=== PATIENT | female | born 1945 | race Caucasian/White ===

== ENCOUNTER 2018-09-29 10:28 | Inpatient (IN) | payer OTHER ==
[~2018-09-29] VITALS: Ht 165.1 cm; Wt 69.4 kg
[2018-09-29 10:29] VITALS: BP 180/93
[2018-09-29] MEDS ORDERED: ASPIR 8181 MG PO (10:39)
[2018-09-29 11:01] LABS: ABSOLUTE NEUTROPHILS 2.9 thou/uL (1.4-8.2); EOSINOPHILS 1.5 % (0.0-3.0); HEMATOCRIT 44.6 % (37.0-47.0); HEMOGLOBIN 15.3 gm/dL (12.0-15.0); LYMPHOCYTES 34.9 % (24.0-44.0); MCH 31.3 pg (26.0-34.0); MCHC 34.4 g/dL (28.0-37.0); MCV 91.2 fL (80.0-100.0); MONOCYTES 8.8 % (1.0-8.0); PLATELET COUNT 196 thou/uL (150-400); POLYS 53.8 % (36.0-66.0); RBC 4.89 mil/uL (4.20-5.00); RDW 12.7 % (10.5-14.5); WBC 5.3 thou/uL (4.0-11.0)
[2018-09-29 11:05] LABS: ANION GAP 8 mmol/L (7-16); BUN 20 mg/dL (7-18); CALCIUM 9.8 mg/dL (8.5-10.1); CHLORIDE 105 mmol/L (98-107); CO2 28 mmol/L (21-32); CREATININE 0.8 mg/dL (0.6-1.0); GLUCOSE 97 mg/dL (74-106); POTASSIUM 4.2 mmol/L (3.5-5.1); SODIUM 141 mmol/L (136-145)
[2018-09-29 11:14] LABS: TROPONIN-I <0.06 ng/mL (<0.06)
[2018-09-29 12:06] VITALS: BP 123/76
[2018-09-29 12:27] VITALS: BP 123/76
[2018-09-29 12:50] VITALS: BP 144/78
[2018-09-29] MEDS ORDERED: CAPSAICIN HOT1 EACH PO (13:23)
[2018-09-29] MEDS ORDERED: UNICOMPLEX M TA1 TA1 PO (13:24)
[2018-09-29] MEDS ORDERED: JOINT HEALTH T1 EACH PO (13:24)
[2018-09-29 16:08] VITALS: BP 110/79
--- NOTE | 2018-09-29 17:14 | NUR ---
PT ADMITTED TO THIS AFTERNOON AROUND 1315. PT A/O X 4. C/O CHEST PRESSURE PRIOR TO ADMISSION, AND LEFT ARM/ELBOW PAIN AT 5/10. PT REPORTS PAIN SINCE MAR OF LAST YEAR, ALMOST CONSTANT BUT FLUCUTATING IN INTENSITY, WORSE AT NIGHT. PT STATES SHE HAS BEEN EVALUATED FOR CP IN MAR AND APR OF LAST YEAR WITH NO SIGNIFICANT RESULTS. ASSESSMENTS PER CHART. TROPONIN NEGATIVE. DENIES ANY PAIN AT THIS TIME, SITTING UP EATING DINNER. VSS. LABS NOTED. UP AD TESSIE IN ROOM WITH STEADY GAIT. WILL CONT TO MONITOR AND FOLLOW POC.
[2018-09-29 20:00] VITALS: BP 121/66
--- NOTE | 2018-09-30 02:54 | NUR ---
ASSESSMENT: PT REMAIN ALERT AND ORIENT TIMES FOUR. UP AD TESSIE TO THE BR AND AROUND THE ROOM. PT REFUSED TO TAKE SCHEDULED LIPITOR STATING, "I DON'T WANT THAT, I ONLY TAKE VITAMINS, I HATE TAKING PILLS....MY CHOLESTEROL IS NOT HIGH". THIS RN ATTEMPTED TO EXPLAIN THAT LIPITOR IS USED TO HELP PREVENT HER CHOLESTEROL FROM GETTING HIGH AND SHOULD BE A PART OF HER CARDIAC REGIMEN BEING THAT SHE HAS A HX OF A CATH AND A STENT IN 2010. PT DENIED CP, SOB AND N/V. EARLIER, WHEN THIS RN ENTERED THIS PT'S ROOM TO DO THE INITIAL ASSESSMENT, THE PT WAS ON HER CELL PHONE, THE PT ASKED THIS RN, "DO I NEED TO GET OFF OF THE PHONE?''. THIS RN TOLD THE PT THAT SHE WOULD COME BACK LATER. VSS, AFEBRILE. SR PER MONITOR. SLOW PROGRESS TOWARDS DC GOALS. WILL CONTINUE TO MONITOR.
[2018-09-30 05:02] VITALS: BP 125/72
[2018-09-30 06:40] LABS: CHOLESTEROL 163 mg/dL (<200); HDL CHOLESTEROL 70 mg/dL (>40); LDL CHOLESTEROL 86 mg/dL (<100); TC:HDL 2.3 Ratio (Not establshd); TRIGLYCERIDE 37 mg/dL (<150); TROPONIN-I <0.06 ng/mL (<0.06); VLDL 7 mg/dL (<40)
[2018-09-30 06:41] LABS: SERUM ASSESSMENT Clear
[2018-09-30 07:55] VITALS: BP 125/78
[2018-09-30 11:50] VITALS: BP 110/77
[2018-09-30 15:50] VITALS: BP 117/66
--- NOTE | 2018-09-30 19:40 | EKG ---
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 : 1945 Requested By: Lesli Chery Order Number: [id number] MD: Navarro Herrera Measurements Intervals [place] Rate: 71 P: 64 MA: 181 QRS: -41 QRSD: 97 T: 29 QT: 404 QTc: 439 Interpretive Statements Sinus rhythm Left anterior fascicular block anteroseptal infarct, old Baseline wander in lead(s) V5,V6 Compared to ECG 04/13/2018 10:02:53 no significant changes Electronically Signed On 09-30-2018 19:40:09 FENCE INSTALLER FOREMAN by Navarro Herrera [email or web address] ��������������������������������������������� <ELECTRONICALLY SIGNED> ���������������������������������������� By: Navarro Herrera MD ��������������������������������������������� 09/30/18 1940 1031 1031 Navarro Herrera MD /EPI
[2018-09-30 20:00] VITALS: BP 125/67
--- NOTE | 2018-09-30 20:07 | EKG ---
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 : 1945 Requested By: Jana Ramsay Order Number: [id number] MD: Navarro Herrera Measurements Intervals [place] Rate: 64 P: 69 [place]: 190 QRS: -39 QRSD: 100 T: 27 QT: 409 QTc: 422 Interpretive Statements Sinus rhythm Left axis deviation Poor R-wave progression nonspecific ST-T wave changes Compared to ECG 04/13/2018 10:02:53 No significant changes Electronically Signed On 09-30-2018 20:06:56 VIRTUAL CLASSROOM MANAGER by Navarro Herrera [email or web address] ��������������������������������������������� <ELECTRONICALLY SIGNED> ���������������������������������������� By: Navarro Herrera MD ��������������������������������������������� 09/30/182005 0749 0749 Navarro Herrera MD /EPI
--- NOTE | 2018-09-30 21:45 | NUR ---
PATIENT ALERT AND ORIENTED AND UP AD TESSIE IN ROOM. PATIENT SIGNED CONSENT FOR CARDIAC CATH ON MONDAY. PATIENT DAUGHTER AT BEDSIDE THIS AFTERNOON AND DAUGHTERS WILL BE AT HOSPITAL FOR PROCEDURE.
--- NOTE | 2018-10-01 02:01 | NUR ---
ASSUMED CARE 0. VSS. ASSESSMENT CHARTED. PT C/O LEFT ARM PAIN STATES NO CHEST PAIN. DENIES N/V, DIZZINESS, OR ANY OTHER CONCERNS. PT REFUSES MEDS, STATES SHE DOES NOT NEED HER ATORVASTATIN, EDUCATED AND DOCUMENTED. PLAN FOR LABS THIS MORNING AND CARDIAC CATH. WILL CONTIUE TO MONITOR AND WITH POC.
[2018-10-01 04:31] LABS: CREATININE 0.8 mg/dL (0.6-1.0); POTASSIUM 4.7 mmol/L (3.5-5.1)
[2018-10-01 04:45] VITALS: BP 121/78
--- NOTE | 2018-10-01 10:16 | 2DMMODE ---
[facility] [address] [place] [address] 2 D/M-MODE ECHOCARDIOGRAM Name: BEAR LAUREANO Room #: 214-P ADM IN M.R.#: [id number] ������������� Admission: 09/29/18 ������������� Attend Phys: Jarad Crook, Discharge: ��� ������������� ��� Date of : 41 Date of Service: 10/01/18 1015 �� Report #: [id number] �������� ��������������������������������������������[id number] THIS REPORT FOR: //name// APPROVED REPORT Study performed: 10/01/2018 08:17:21 EXAM: Comprehensive 2D, Doppler, and color-flow Echocardiogram Patient Location: Bedside Room #: 214 Status: routine BSA: 1.75 HR: 59 bpm BP: 121/78 mmHg Rhythm: NSR Other Information Study Quality: Adequate Indications CAD Chest Pain Left arm pain 2D Dimensions IVSd: 8.68 (7-11mm) LVOT Diam: 20.00 (18-24mm) LVDd: 41.15 mm PWd: 8.68 (7-11mm) Ascending Ao: 34.37 (22-36mm) LVDs: 29.85 (25-40mm) Aortic Root: 32.19 mm LV Single Plane 4CH: 60.20 % LV Single Plane 2CH: 65.72 % Biplane EF: 63.3 % Volumes Left Atrial Volume (Systole) Single Plane 4CH: 29.98 mL Single Plane 2CH: 25.81 mL LA ESV Index: 21.00 mL/m2 Aortic Valve AoV Peak Segun.: 1.42 m/s AO Peak Gr.: 8.08 mmHg LVOT Max P.05 mmHg LVOT Max V: 1.01 m/s DMITRY Vmax: 2.17 cm2 AI Vmax: 3.17 m/s [facility] [place] [address] 2 D/M-MODE ECHOCARDIOGRAM Name: BEAR LAUREANO Room #: 214-P [facility] IN .R.#: [id number] ������������� Admission: 09/29/18 ������������� Attend Phys: Jarad Crook, Discharge: ��� ������������� ��� Date of : 41 Date of Service: 10/01/18 1015 �� Report #: [id number] �������� ��������������������������������������������[id number] AI [place]: 1.14 m/s2 AI PHT: 812.36 ms Mitral Valve E/A Ratio: 0.7 MV Decel. Time: 328.19 ms MV E Max Segun.: 0.54 m/s MV A Segun.: 0.73 m/s MV PHT: 95.17 ms IVRT: 64.59 ms TDI E/Lateral E': 9.00 E/Medial E': 9.00 Medial E' Segun.: 0.06 m/s Lateral E' Segun.: 0.06 m/s Pulmonary Valve PV Peak Segun.: 0.68 m/s PV Peak Gr.: 1.85 mmHg HI End Vmax: 0.95 m/s Pulmonary Vein P Vein S: 0.45 m/s P Vein A: 0.25 m/s P Vein D: 0.31 m/s P Vein A Dur.: 110.7 msec P Vein S/D Ratio: 1.45 Tricuspid Valve TR Peak Segun.: 2.28 m/s RAP Estimate: 7.00 mmHg TR Peak Gr.: 20.71 mmHg PA Pressure: 28.00 mmHg Left Ventricle The left ventricle is normal size. There is normal LV segmental wall motion. There is normal left ventricular wall thickness. Left ventricular systolic function is normal. The left ventricular ejection fraction is within the normal range. LVEF is 60-65%. Mild diastolic dysfunction is present (impaired relaxation pattern). Right Ventricle Right ventricle is mildly dilated. The right ventricular systolic function is normal. Atria The left atrium size is normal. Right atrium is dilated. Aortic Valve [facility] [address] [place] [address] 2 D/M-MODE ECHOCARDIOGRAM Name: BEAR LAUREANO Room #: 214-P [facility] IN ..#: [id number] ������������� Admission: 09/29/18 ������������� Attend Phys: Jarad Crook, Discharge: ��� ������������� ��� Date of : 41 Date of Service: 10/01/18 1015 �� Report #: [id number] �������� ��������������������������������������������[id number] The aortic valve is mildly calcified Mild aortic regurgitation. There is no aortic valvular stenosis. Mitral Valve The mitral valve is normal in structure. There is no mitral valve regurgitation noted. No evidence of mitral valve stenosis. Tricuspid Valve The tricuspid valve is normal in structure. Mild tricuspid regurgitation. Pulmonary artery pressure is 28 mmHg. Pulmonic Valve The pulmonary valve is normal in structure. Moderate pulmonic regurgitation. Great Vessels The aortic root is normal in size. IVC is normal in size and collapses >50% with inspiration. Pericardium There is no pericardial effusion. <Conclusion> Left ventricular systolic function is normal. There is normal LV segmental wall motion. LVEF is 60-65%. Mild diastolic dysfunction The aortic valve is mildly calcified. Mild aortic regurgitation, no stenosis. The mitral valve is normal in structure. No mitral valve regurgitation. Mild tricuspid regurgitation. Pulmonary artery pressure of 28 mmHg. There is no pericardial effusion. ��������������������������������������������� <ELECTRONICALLY SIGNED> ���������������������������������������� By: Husam Murphy MD, FACC ��������������������������������������������� 10/01/18 1015 1015 1015 Husam Murhpy MD, FACC /INF
[2018-10-01 11:50] VITALS: BP 113/58
[2018-10-01 15:30] VITALS: BP 136/75
--- NOTE | 2018-10-01 15:30 | NUR ---
RECEIVED PT FROM [facility]. VSS NSR, R GROIN CATH SITE WITHOUT HEMATOMA OR BRUIT HEARD, SOME THICKENING AT SITE AND HELD BY ANNUAL GREENHOUSE MANAGER PERSONEL FOR 5 MINUTES, NO FURTHER THICKENING. SEE DATA FLOW SHEET FOR FREQUENT VITAL SIGNS AND GROIN CHECKS. PT AWARE BEDREAST UNTIL 6;30. WILL CONTINUE TO MONITER AND CARE FOR PTPER PLAN OF CARE
[2018-10-01 20:00] VITALS: BP 113/64
--- NOTE | 2018-10-01 23:26 | CATHLAB ---
[facility] [address] [place] [address] INVASIVE PROCEDURE REPORT Name: SRIDEVIBEAR Room #: 214-P [facility] IN [facility].#: [id number] ������������� Admission: 09/29/18 ������������� Attend Phys: Jarad Crook, Discharge: ��� ������������� ��� Date of : 41 Date of Service: 10/01/18 2325 �� Report #: [id number] �������� ��������������������������������������������[id number] THIS REPORT FOR: //name// APPROVED REPORT Study performed: 10/01/2018 13:47:31 Patient Details Patient Status: In-Patient Room #: The patient is a 73 year-old female Event Personnel Navarro Herrera Buyers' Agent, Jordi Marte RN, Debbie Lea Monitor, Isaac Mena Ferguson, Christeena RN RN, Melissa Sandoval RT(R)() Monitor Procedures Performed Left Heart Cath w/or w/o Coronaries [id number] [facility] [address] Place w/wo Plasty Single RCA [id number] FFR supervision of conscious sedation Indication Chest pain, FFR PRE 1.0- FFR POST .80 OF THE DISTAL RCA Risk Factors Coronary Artery Disease Procedure Narrative The Right Groin^ was infiltrated with 1% Lidocaine subcutaneous anesthesia. A PINNACLE 4FR Sheath #[id number] sheath was inserted into the RFA^. Coronary angiography was performed using coronary diagnostic catheters. The right coronary system was accessed and visualized with a JR4 catheter. The left coronary system was accessed and visualized with a JL4 catheter. The left ventricle was accessed and visualized with a PIGTAIL catheter. Left ventricular/Aortic Valve gradient assessed via catheter pullback. Closure device was deployed with a 6 Fr MYNXGRIP 6/7F #[id number]. The patient tolerated the procedure well and there were no complications associated with the procedure. There was no hematoma. Intraoperative Conscious Sedation Sedation start time: 14.32 Case end Time: 15.09 Versed 2 mg [facility] [place] [address] [place] [address] INVASIVE PROCEDURE REPORT Name: BEAR LAUREANO Room #: 214-P [facility] IN .R.#: [id number] ������������� Admission: 09/29/18 ������������� Attend Phys: Jarad Crook, Discharge: ��� ������������� ��� Date of : 41 Date of Service: 10/01/18 2325 �� Report #: [id number] �������� ��������������������������������������������[id number] Fluoro Time: 6.01 minutes Dose: DAP 3123.00 cGycm2 461 mGy Contrast Type and Amount: Omnipaque 65 ml Coronary Angiography The patient's coronary anatomy is right dominant. Diagnostic Cath Left Main Large caliber vessel of normal origin bifurcates into LAD and Left Circumflex arteries. It is free of luminal irregularities or significant lesions. LAD Moderate caliber type 2 vessel courses in anterior interventricular sulcus giving rise to a small diagonal as it tapers toward the apex. free of high grade lesions Diagonal 1 small caliber free of significant lesions Circumflex small to moderate caliber nondominant vessel free of significant disease Right Coronary Large caliber vessel of normal origin has eccentric proximal lesion of 50- 60% lesion that appears not to be flow limiting. The previously placed stent has minimal restenosis and no flow limiting lesions. The rca continues giving rise to a small PDA and a larger posterior circulation. At the crux of the heart there appears to ro minimal bend. R PDA small caliber free of high grade disease Left Ventriculography Left Ventriculography was not performed. Hemodynamics The aortic pressure is 120/67 mmHg with a mean of 90 mmHg. The left ventricular pressure is 133/65 mmHg with a mean of mmHg. The left ventricular end diastolic pressure is 20 mmHg. PCI Technique FFR was performed with adenosine infusion initially across the proximal lesion then past the origin of the PDA. The proximal lesion readings were greater than 0.9. The reading after the crux dropped to a transient .79 then stabilized at .8-.81 With FFR demonstrating significant distal mid RCA lesion a medtronics LORA 2.75mm by 8 mm stent was primarily deployed across lesion and dilated to 16 gypsy. No complications. No intraluminal disruption, distal embolization. Post stenting routing protocol PCI Technique Lesion Percutaneous coronary intervention was performed on the [facility] [address] [address] INVASIVE PROCEDURE REPORT Name: SRIDEVIBEAR Room #: 214-P [facility] IN M.R.#: [id number] ������������� Admission: 09/29/18 ������������� Attend Phys: Jarad Crook, Discharge: ��� ������������� ��� Date of : 41 Date of Service: 10/01/18 2325 �� Report #: [id number] �������� ��������������������������������������������[id number] coronary artery. A LAUNCHER 6FR JR 4 #[id number] Guide Catheter was used to engage the ostium. A Tap2print Pressure Wire 175 cm [id number] Interventional Guidewire was used to cross the lesion. STENT DEPLOYMENT A drug-eluting stent RESOLUTE JUAQUIN RX 2.75 X 8 #[id number] was inserted and inflated up to 12.00atm for 15seconds. Additional Inflation: 16.00atm for 15seconds. Conclusion 1. CAD single vessel consisting of distal mid right coronary artery 2. Successful revascularization with a 2.75mm x 8mm LORA metronic stent Recommendations Daily ASA with Plavix for at least one year Cardiac Risk Reduction Program Medical Therapy Medications Administered Clopidogrel ��������������������������������������������� <ELECTRONICALLY SIGNED> ���������������������������������������� By: Navarro Herrera MD ��������������������������������������������� 10/01/18 2325 24 24 Navarro Herrera MD /INF
[2018-10-02] VITALS (8 sets, daily range): BP systolic 108–120; BP diastolic 62–89
--- NOTE | 2018-10-02 04:18 | NUR ---
ASSUMED CARE 1899. VSS. ASSESSMENT CHARTED. PT DENIES ANY CONCERNS, STATES SHE STILL HAS SOME LEFT ARM PAIN, BUT NO CP. AGREED TO TAKE ATORVASTATIN THIS SHIFT. R GROIN SITE, CDI NO HEMATOMA. OFF BEDREST AND UP TO BATHROOM. PLAN FOR LABS AND PT HOPEFUL TO D/C THIS AFTERNOON. WILL CONTINUE TO MONITOR AND WITH POC.
[2018-10-02] MEDS ORDERED: ATORVASTATIN CA40 MG PO (09:57)
[2018-10-02] MEDS ORDERED: PLAVIX 75 MG TA75 M1 PO (09:57)
[2018-10-02] MEDS ORDERED: TOPROL XL25 MG PO (09:58)
== END 2018-10-02 14:34 | disposition home or self-care (01) | DRG 246 ==
LOC: ER 10:28 → 2N 11:50 → EROBS 11:50 → 2N 12:28 → ENTRNSPT 10-02 14:19 → EDTRNSPTSTS 10-02 14:30 → 2N 10-02 14:34
PROVIDERS: Emergency Medicine; Nurse Practitioner; ADMIT Internal Medicine
PROC: B211YZZ Fluoroscopy of Multiple Coronary Arteries using Other Contrast (ICD-10-PCS; principal; 2018-10-01)
PROC: 027034Z Dilation of Coronary Artery, One Artery with Drug-eluting Intraluminal Device, Percutaneous Approach (ICD-10-PCS; principal; 2018-10-01)
PROC: 4A023N7 Measurement of Cardiac Sampling and Pressure, Left Heart, Percutaneous Approach (ICD-10-PCS; principal; 2018-10-01)
DX: I21.4 Non-ST elevation (NSTEMI) myocardial infarction (principal); I50.33 Acute on chronic diastolic (congestive) heart failure; I25.10 Atherosclerotic heart disease of native coronary artery without angina pectoris; F41.9 Anxiety disorder, unspecified; Z60.2 Problems related to living alone; M19.90 Unspecified osteoarthritis, unspecified site; R79.89 Other specified abnormal findings of blood chemistry; I25.9 Chronic ischemic heart disease, unspecified; Z88.0 Allergy status to penicillin; Z79.82 Long term (current) use of aspirin; I25.2 Old myocardial infarction; Z95.5 Presence of coronary angioplasty implant and graft; Z79.899 Other long term (current) drug therapy
CPT/HCPCS: 10081